=== PATIENT | female | born 1990 | race African-American/Black ===

== ENCOUNTER 2018-03-12 11:57 | Emergency (ER) | payer SELFPAY ==
[~2018-03-12] VITALS: Ht 175.3 cm; Wt 94.8 kg
[2018-03-12 12:00] VITALS: BP 144/88
--- NOTE | 2018-03-12 12:02 | NUR ---
Patient ambulated to bed 3. RN evaluating patient at bedside.
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
[2018-03-12] MEDS ORDERED: KETOROLAC 60 MG/2 ML VIAL IM ONE (12:20)
--- NOTE | 2018-03-12 12:28 | NUR ---
Patient taken to XRAY via wheelchair by tech.
[2018-03-12 13:23] VITALS: BP 140/82
== END 2018-03-12 13:23 | disposition home or self-care (01) ==
LOC: MED 11:57
DX: S70.02XA Contusion of left hip, initial encounter (principal); M54.5 Low back pain; W18.30XA Fall on same level, unspecified, initial encounter; Y93.89 Activity, other specified; Y92.481 Parking lot as the place of occurrence of the external cause; Y99.8 Other external cause status
CPT/HCPCS: 73502; 96372; 99284; J1885